=== PATIENT | female | born 1950 | race Hispanic/Latino ===

== ENCOUNTER → 2019-05-24 | Outpatient (CLI) | payer BC, OTHER | END | disposition home or self-care (01) | LOC: SHCH 12:32 | PROVIDERS: ATTEND Internal Medicine Cardiovascular Disease | DX: I11.9 Hypertensive heart disease without heart failure (principal) | CPT/HCPCS: 93306 ==

== ENCOUNTER → 2019-05-27 | Outpatient (CLI) | payer BC, OTHER ==
[~2019-05-27] VITALS: Ht 175.3 cm; Wt 105.2 kg
[~2019-05-27] MED LIST: REGADENOSON 0.4 MG/5 ML PF SYG IVP SCH
== END | disposition home or self-care (01) ==
LOC: SHCH 08:09
PROVIDERS: ATTEND Internal Medicine Cardiovascular Disease
DX: R94.31 Abnormal electrocardiogram [ECG] [EKG] (principal); I10 Essential (primary) hypertension
CPT/HCPCS: 78452; 93017; 96374; A9500 ×2; J2785

== ENCOUNTER 2020-12-13 06:18 | Day surgery (SDC) | payer OTHER ==
[2020-12-11 13:20] VITALS: BP_SYST 167; BP_SYST 169; BP_DIAS 83; BP_DIAS 89
[2020-12-11 13:25] VITALS: BP 140/89
[2020-12-11 13:47] LABS: BASOPHILS % (AUTO) 0.9 % (0.0-5.0); EOSINOPHILS % (AUTO) 3.4 % (0.0-8.0); HEMATOCRIT 42.6 % (36-48); LYMPHOCYTES % (AUTO) 42.8 % (21.0-51.0); MEAN CORPUSCULAR HEMOGLOBIN 30.4 pg (27.0-33.0); MEAN CORPUSCULAR HGB CONC 34.3 g/dL (32.0-36.0); MEAN CORPUSCULAR VOLUME 88.8 fL (79-99); MONOCYTES % (AUTO) 8.2 % (3.0-13.0); NEUTROPHILS % (AUTO) 44.6 % (40.0-77.0); PLATELET COUNT (AUTO) 291 K/uL (130-400); RED CELL DISTRIBUTION WIDTH 12.2 % (11.0-15.5); WHITE BLOOD COUNT (AUTO) 7.8 K/uL (4.8-10.8)
[2020-12-11 13:55] LABS: POTASSIUM 4.2 mmol/L (3.5-5.1)
[2020-12-13] VITALS (10 sets, daily range): BP systolic 118–150; BP diastolic 71–85
[~2020-12-13] VITALS: Ht 175.3 cm; Wt 104.3 kg
[~2020-12-13 06:18] MED LIST changes: +AEC81 PO; +HYDR25TA PO; +PARO-66 PO; -REGADENOSON 0.4 MG/5 ML PF SYG IVP SCH; +ROSU5TAB12 PO; +VITAD50000 PO
[2020-12-13] MEDS ORDERED: CEFAZOLIN SODIUM 1 GM VIAL ONE (06:59)
[2020-12-13] MEDS ORDERED: LACTATED RINGERS 1000ML 1,000 ML IV ONE (06:59)
[2020-12-13] MEDS ORDERED: 0.9%NACL 10ML VIAL ONE (07:00)
[2020-12-13] MEDS ORDERED: BUPIVACAINE/PF 0.5% 10ML VIAL ONE (07:10)
[2020-12-13] MEDS ORDERED: LIDOCAINE PF 100MG/5ML (2%) SYRINGE 5ML ONE ×2 (07:27→07:29)
[2020-12-13] MEDS ORDERED: SUCCINYLCHOLINE CHLORIDE 20 MG/ML 10 ML VIAL ONE ×2 (07:27→07:29)
[2020-12-13] MEDS ORDERED: MIDAZOLAM HCL 1 MG/ML 2ML VIAL ONE ×3 (07:28→08:53)
[2020-12-13] MEDS ORDERED: NEOSTIGMINE 5MG/5ML SYR IV ONE (07:28)
[2020-12-13] MEDS ORDERED: PROPOFOL 10 MG/ML 20ML VIAL IV ONE (07:28)
[2020-12-13] MEDS ORDERED: GLYCOPYRROLATE 1 MG/5 ML SYRINGE ONE (07:28)
[2020-12-13] MEDS ORDERED: ROCURONIUM 10MG/1ML SYR 10 MG/ML ML ONE (07:28)
[2020-12-13] MEDS ORDERED: FENTANYL CITRATE PF 50 MCG/1 ML 2ML VIAL ONE (07:28)
[2020-12-13] MEDS ORDERED: ONDANSETRON 4MG INJ ONE (07:28)
[2020-12-13] MEDS ORDERED: CLINDAMYCIN IVPB 900MG/50ML 50 ML IV ONE (07:47)
[2020-12-13] MEDS ORDERED: LIDOCAINE HCL MDV 0.5% 50ML VIAL IJ ONE (08:25)
[2020-12-13] MEDS ORDERED: CLINDAMYCIN 900MG/6ML INJ ONE (08:43)
[2020-12-13] MEDS ORDERED: CLIN-141 PO (09:25)
[2020-12-13] MEDS ORDERED: ACET1TAB25 PO (09:25)
[2020-12-13] MEDS ORDERED: IBUP-2070 PO (09:25)
== END 2020-12-13 10:40 | disposition home or self-care (01) ==
LOC: DAH 06:18
PROVIDERS: ATTEND Orthopaedic Surgery
DX: G56.01 Carpal tunnel syndrome, right upper limb (principal); Z20.828 Contact with and (suspected) exposure to other viral communicable diseases; I10 Essential (primary) hypertension; E66.9 Obesity, unspecified; E78.00 Pure hypercholesterolemia, unspecified; F41.9 Anxiety disorder, unspecified; E66.8 Other obesity; Z98.890 Other specified postprocedural states; Z72.89 Other problems related to lifestyle; Z82.49 Family history of ischemic heart disease and other diseases of the circulatory system; Z88.1 Allergy status to other antibiotic agents; Z88.8 Allergy status to other drugs, medicaments and biological substances
CPT/HCPCS: 36415; 64721; 80048; 85025; 87426; 93005; A4215; A4216; A4221; A4222; A4223 ×2; A4565; A4649; A4663; A4930; A5120; A6223; J0330 ×2; J2001 ×2; J2250 ×3; J2405; J2704; J2710; J3010; J3490 ×4; J7120; U0003; J0690

== ENCOUNTER → 2024-12-15 | Outpatient (CLI) | payer OTHER ==
[~2024-12-15] MED LIST changes: +ACET-2079 PO; +CLIN-141 PO; +IBUP-2070 PO; +PARO-149 PO; -PARO-66 PO; -ROSU5TAB12 PO; +ROSU5TAB51 PO
--- NOTE | 2024-12-15 11:43 | HMCIMG ---
US BREAST COMPLETE UNILATERAL REASON: MASTODYNIA COMPARISON: Outside screening mammogram 06/07/2024 TECHNIQUE: Right breast ultrasound was performed. FINDINGS: There is normal appearing parenchyma. There are no focal masses. There are are no cysts. There is no architectural distortion or acoustical shadowing. There are a few normal-appearing lymph nodes present in the axilla. Particular attention was given the 7-9 o'clock region which is the area of most significant discomfort. IMPRESSION: 1. Negative right breast ultrasound.
== END | disposition home or self-care (01) ==
LOC: RAH 09:43
PROVIDERS: ATTEND Internal Medicine
DX: N64.4 Mastodynia (principal)
CPT/HCPCS: 76641